=== PATIENT | male | born 1960 | race Caucasian/White ===

== ENCOUNTER → 2023-03-13 | Emergency (ER) | payer OTHER ==
[~2023-03-13] MED LIST: COLCHICINE 0.6 MG TAB ONE; KETOROLAC 30 MG/ML INJ ONE; dexAMETHasone 10 MG/ML VIAL ONE
[2023-03-13 11:03] LABS: Potassium 4.1 mEq/L (3.5-5.1); Uric Acid 7.3 mg/dL (3.5-7.2)
[2023-03-13 11:04] LABS: Absolute Lymphocytes (CBC) 1.4 K/uL (0.7-4.9); Hematocrit 44.5 % (39.6-49.0); Lymphocytes % 25.7 % (15.3-44.8); MCV 86.2 fL (80-100); MPV 8.5 fL (7.6-11.3); Platelets 227 thou/uL (152-406); RBC Red Blood Cell Count 5.16 M/uL (4.33-5.43)
--- NOTE | 2023-03-13 11:17 | EDPHYS ---
Physician Documentation [facility] Name: Win Lantigua Age: 62 yrs Sex: Male : 1960 Arrival Date: 03/13/2023 Time: 09:43 Bed 15 Private MD: ED Physician Alvaro Moreland HPI: 03/13 11:41 This 62 yrs old Male presents to ER via Ambulatory with complaints of Knee Pain, Knee kb Swelling. 11:41 Patient is a 62-year-old male who presents for right knee pain and swelling that kb started 4 to 5 weeks ago. States he was seen by another ER, had an x-ray done and told he just had inflammation last week. States it has been getting any better. Denies fever or chills. States he does have a history of gout but has not had a flareup in a few years. States he did stop taking his allopurinol a while back. Denies injury or trauma. Request blood work to check uric acid level.. Historical: - Allergies: 10:51 No Known Allergies; kc6 ROS: 11:39 Constitutional: Negative for fever, chills, and weight loss, kb 11:39 MS/extremity: Positive for pain, swelling, tenderness, of the right knee, 11:39 All other systems are negative, Exam: 11:39 Constitutional: This is a well developed, well nourished patient who is awake, alert, kb and in no acute distress. Head/Face: Normocephalic, atraumatic. ENT: Moist Mucous membranes Respiratory: Respirations even and unlabored. No increased work of breathing. Talking in full sentences Skin: Warm, dry with normal turgor. Normal color. Neuro: Awake and alert, GCS 15, oriented to person, place, time, and situation. Moves all extremities. Normal gait. 11:39 Musculoskeletal/extremity: Extremities: grossly normal except: noted in the right knee: pain, swelling, tenderness, ROM: intact in all extremities, Circulation is intact in all extremities. Sensation intact. Weight bearing: can bear weight with assistance only, uses crutches, Vital Signs: 09:55 BP 155 / 104; Pulse 84; Resp 16; Temp 97.7(O); Pulse Ox 99% on R/A; Weight 104.33 kg; hb Height 5 ft. 10 in. ; Pain 8/10; 10:50 BP 137 / 90; Pulse 73; Resp 16 S; Pulse Ox 99% on R/A; kc6 09:55 Body Mass Index 33.00 (104.33 kg, 177.8 cm) hb 09:55 Pain Scale: Adult hb MDM: 09:48 Patient medically screened. luis 11:40 Differential diagnosis: sprain, strain, gout, cellulitis. Data reviewed: vital signs, kb nurses notes. Test considered but Not performed: X-ray: x-ray knee considered, but pt had x-ray completed last week that showed no bony abnormality; soft tissue inflammation only. Counseling: I had a detailed discussion with the patient and/or guardian regarding the historical points, exam findings, and any diagnostic results supporting the discharge/admit diagnosis, lab results, the need for outpatient follow up, a orthopedic surgeon, to return to the emergency department if symptoms worsen or persist or if there are any questions or concerns that arise at home. ED course: Pt has appt with ortho scheduled for Wednesday. 03/13 09:58 Order name: CBC with Diff; Complete Time: 11:05 kb 03/13 09:58 Order name: Basic Metabolic Panel; Complete Time: 11:05 kb 03/13 09:58 Order name: Uric Acid; Complete Time: 11:05 kb 03/13 09:58 Order name: IV Start; Complete Time: 10:39 kb Administered Medications: 10:39 Drug: Ketorolac IVP 15 mg IVP once Route: IVP; Site: right hand; kc6 11:20 Follow up: Response: No adverse reaction kc6 10:39 Drug: Decadron - Dexamethasone IVP 10 mg IVP once Route: IVP; Site: right hand; kc6 11:20 Follow up: Response: No adverse reaction kc6 10:39 Drug: Colcrys PO 1.2 mg PO once Route: PO; kc6 11:20 Follow up: Response: No adverse reaction kc6 Disposition Summary: 03/13/23 11:17 Discharge Ordered Notes: Location: Home kb Condition: Stable kb Diagnosis - Pain in right knee kb Followup: kb - With: Emergency Department - When: As needed - Reason: Worsening of condition Followup: kb - With: Private Physician - When: 2 - 3 days - Reason: Recheck today's complaints, Continuance of care, Re-evaluation by your physician Discharge Instructions: - Discharge Summary Sheet kb - Musculoskeletal Pain kb - Acute Knee Pain, Adult, [id number] kb Forms: - Medication Reconciliation Form kb - Thank You Letter kb - Antibiotic Education kb - Prescription Opioid Use kb - Patient Portal Instructions kb - Leadership Thank You Letter kb Prescriptions: - Prednisone 20 mg Oral Tablet - take 1 tablet ORAL route once daily for 5 days; 5 tablet; Refills: 0, Product kb Selection Permitted - Diclofenac Sodium 75 mg Oral tablet, delayed release (enteric coated) - take 1 tablet ORAL route 2 times per day As needed; 30 tablet; Refills: 0, kb Product Selection Permitted Signatures: Dispatcher [employer] EDMS Margie Lopes, LONGWALL SHEARER OPERATOR-C LONGWALL SHEARER OPERATOR-Alvaro Woodard MD MD cha Baxter, Heather, RAOUL RN Leilani Horner RN RN kc6 Corrections: (The following items were deleted from the chart) 09:57 09:56 Allergies: No Known Allergies; [facility] 09:57 09:56 Immunization history: Adult Immunizations up to date, [facility] 11:40 11:39 Musculoskeletal/extremity: Extremities: grossly normal except: noted in the right kb knee: pain, swelling, tenderness, ROM: intact in all extremities, Circulation is intact in all extremities. Sensation intact. 11:43 11:41 Patient is a 62-year-old male who presents for right knee pain and swelling that kb started 4 to 5 weeks ago. States he was seen by another ER, had an x-ray done and told he just had inflammation last week. States it has been getting any better. Denies fever or chills. States he does have a history of gout but has not had a flareup in a few years. States he did stop taking his allopurinol a while back. Denies injury or trauma.. kb
--- NOTE | 2023-03-13 11:17 | ER ---
Nurse's Notes [facility] Name: Win Lantigua Age: 62 yrs Sex: Male : 1960 Arrival Date: 03/13/2023 Time: 09:43 Bed 15 Private MD: Diagnosis: Pain in right knee Presentation: 03/13 09:55 Chief complaint: Right knee pain and swelling x 4-5 weeks. Denies injury. Hx of gout hb but not on medication anymore. Coronavirus screen: At this time, the client does not indicate any symptoms associated with coronavirus-19. Ebola Screen: No symptoms or risks identified at this time. Initial Sepsis Screen: Does the patient meet any 2 criteria? No. Patient's initial sepsis screen is negative. Does the patient have a suspected source of infection? No. Patient's initial sepsis screen is negative. Risk Assessment: Do you want to hurt yourself or someone else? Patient reports no desire to harm self or others. Onset of symptoms was January 2023. 09:55 Method Of Arrival: Ambulatory hb 09:55 Acuity: YOVANI 3 hb Historical: - Allergies: 10:51 No Known Allergies; kc6 Screenin:42 [facility] ED Fall Risk Assessment (Adult) History of falling in the last 3 months, kc6 including since admission No falls in past 3 months (0 pts) Confusion or Disorientation No (0 pts) Intoxicated or Sedated No (0 pts) Impaired Gait Yes (1 pt) Mobility Assist Device Used Yes (1 pt) Altered Elimination No (0 pt) Score/Fall Risk Level 0 - 2 = Low Risk. Abuse screen: Denies threats or abuse. Denies injuries from another. Nutritional screening: No deficits noted. Tuberculosis screening: No symptoms or risk factors identified. Assessment: 10:42 General: Appears in no apparent distress. comfortable, well groomed, well developed, kc6 Behavior is calm, cooperative, appropriate for age. Pain: Complains of pain in right knee. Neuro: Level of Consciousness is awake, alert, obeys commands, Oriented to person, place, time, situation, Appropriate for age. Cardiovascular: Capillary refill < 3 seconds. Respiratory: Airway is patent Trachea midline Respiratory effort is even, unlabored, Respiratory pattern is regular, symmetrical. GI: No signs and/or symptoms were reported involving the gastrointestinal system. : No signs and/or symptoms were reported regarding the genitourinary system. EENT: No signs and/or symptoms were reported regarding the EENT system. Derm: No signs and/or symptoms reported regarding the dermatologic system. Skin is intact, is healthy with good turgor, Skin is pink, warm \T\ dry. Musculoskeletal: No signs and/or symptoms reported regarding the musculoskeletal system. Range of motion: limited in right knee. Vital Signs: 09:55 BP 155 / 104; Pulse 84; Resp 16; Temp 97.7(O); Pulse Ox 99% on R/A; Weight 104.33 kg; hb Height 5 ft. 10 in. ; Pain 8/10; 10:50 BP 137 / 90; Pulse 73; Resp 16 S; Pulse Ox 99% on R/A; kc6 09:55 Body Mass Index 33.00 (104.33 kg, 177.8 cm) hb 09:55 Pain Scale: Adult hb ED Course: 09:45 Patient arrived in ED. [id number] 09:48 Alvaro Moreland MD is Attending Physician. luis 09:49 Margie Lopes FNP-C [facility]. kb 09:56 Triage completed. hb 09:57 Arm band placed on. hb 10:04 Leilani Ray, RN is Primary Nurse. kc6 10:39 Missed attempt(s): 20 gauge in left forearm. Inserted saline lock: 24 gauge in right kc6 hand, using aseptic technique. Patient maintains SpO2 saturation greater than 95% on room air. 10:42 Patient has correct armband on for positive identification. Bed in low position. Call kc6 light in reach. Side rails up X 1. Adult w/ patient. Client placed on continuous cardiac and pulse oximetry monitoring. NIBP monitoring applied. 11:27 No provider procedures requiring assistance completed. IV discontinued, intact, kc6 bleeding controlled, No redness/swelling at site. Pressure dressing applied. Administered Medications: 10:39 Drug: Ketorolac IVP 15 mg IVP once Route: IVP; Site: right hand; kc6 11:20 Follow up: Response: No adverse reaction kc6 10:39 Drug: Decadron - Dexamethasone IVP 10 mg IVP once Route: IVP; Site: right hand; kc6 11:20 Follow up: Response: No adverse reaction kc6 10:39 Drug: Colcrys PO 1.2 mg PO once Route: PO; kc6 11:20 Follow up: Response: No adverse reaction kc6 Medication: 11:27 VIS not applicable for this client. kc6 Outcome: 11:17 Discharge ordered by . kb 11:27 Discharged to home with crutches, with significant other, kc6 11:27 Condition: good 11:27 Discharge instructions given to patient, Instructed on discharge instructions, follow up and referral plans. medication usage, Demonstrated understanding of instructions, follow-up care, medications, Prescriptions given X 2, 11:27 Patient left the ED. kc6 Signatures: Margie Lopes, BURNER SHAFT-C BURNER SHAFT-Ckb Alvaro Moreland MD MD cha Baxter, Heather, RN RN Deloris Mcadams rg4 Leilani Ray RN RN kc6 Corrections: (The following items were deleted from the chart) 09:57 09:56 Allergies: No Known Allergies; hb hb 09:57 09:56 Immunization history: Adult Immunizations up to date, hb hb
[2023-03-13 12:16] VITALS: BP 137/90; TEMP 97.7; O2SAT 99
== END ==
LOC: ER 09:43
DX: M25.561 Pain in right knee (principal)
CPT/HCPCS: 85025; 80048; 36415; 84550; 96375; 96374; 99285; J1100